=== PATIENT | female | born 1995 | race African-American/Black ===

== ENCOUNTER 2017-06-29 13:58 | Emergency (ER) | payer MEDICAID ==
[~2017-06-29] VITALS: Ht 154.9 cm; Wt 38.0 kg
[2017-06-29 14:06] VITALS: BP 111/76
== END 2017-06-29 17:30 | disposition left against medical advice (07) ==
LOC: ER 15:22
DX: R10.9 Unspecified abdominal pain (principal); Z53.21 Procedure and treatment not carried out due to patient leaving prior to being seen by health care provider

== ENCOUNTER 2017-10-24 09:14 | Emergency (ER) | payer MEDICAID ==
[~2017-10-24] VITALS: Ht 152.4 cm; Wt 46.0 kg
[2017-10-24 10:05] VITALS: BP 128/49
== END 2017-10-24 12:27 | disposition left against medical advice (07) ==
LOC: ER 09:29
DX: R11.10 Vomiting, unspecified (principal); Z53.21 Procedure and treatment not carried out due to patient leaving prior to being seen by health care provider

== ENCOUNTER 2017-10-27 05:09 | Emergency (ER) | payer MEDICAID ==
[~2017-10-27] VITALS: Ht 162.6 cm; Wt 45.0 kg
[2017-10-27] MEDS ORDERED: METHYLPREDNISOLONE SOD SUCC 125 MG/2 ML VIAL IM STA (08:17)
[2017-10-27] MEDS ORDERED: ALBUTEROL (0.083%) 2.5MG/3ML NEB HHN STA (08:17)
[2017-10-27] MEDS ORDERED: IPRATROPIUM BROMIDE (0.02%) 0.5MG/2.5ML NEB HHN STA (08:17)
[2017-10-27] MEDS ORDERED: SODIUM CHLORIDE 0.9% 1,000 ML IV ONE (08:44)
[2017-10-27] MEDS ORDERED: KETOROLAC 30MG/ML VIAL IV STA (08:44)
[2017-10-27] MEDS ORDERED: ONDANSETRON HCL 4MG/2ML VIAL IV STA (08:44)
[2017-10-27 09:25] LABS: CLARITY URINE CLEAR (CLEAR); COLOR URINE YELLOW (YELLOW); KETONES URINE 3+ (NEGATIVE); LEUKOCYTE ESTERASE URINE 1+ (NEGATIVE); NITRITE URINE NEGATIVE (NEGATIVE); OCCULT BLOOD URINE NEGATIVE (NEGATIVE); PH URINE 6.5 (4.5-8.0); PROTEIN URINE NEGATIVE (NEGATIVE); SPECIFIC GRAVITY URINE 1.023 (1.005-1.030); UROBILINOGEN URINE 0.2 E.U./dL (0.2-1.0)
[2017-10-27 09:35] LABS: BASOPHILS % 0.9 % (0.0-2.0); EOSINOPHILS % 0.4 % (0.0-5.0); HEMATOCRIT. 37.9 % (36.0-48.0); LYMPHOCYTES % 20.3 % (20.0-50.0); MEAN CORPUSCULAR HEMOGLOBIN 32.2 pg (28.0-32.0); MEAN CORPUSCULAR VOLUME 93.7 fL (81.0-99.0); MEAN PLATELET VOLUME 6.8 fl (7.4-10.4); MONOCYTES % 8.4 % (2.0-8.0); PLATELET 288 x1000/uL (130-400); RED BLOOD CELL COUNT 4.04 mill/uL (4.2-5.4); RED CELL DISTRIBUTION WIDTH 12.9 % (11.6-14.6)
[2017-10-27 09:51] LABS: CARBON DIOXIDE 26 mEq/L (21-32); CHLORIDE 103 mEq/L (98-107); ETHANOL BLOOD < 10 mg/dL
[2017-10-27 09:59] LABS: HCG SCREEN NEGATIVE
[2017-10-27] MEDS ORDERED: AZITHROMYCIN 500 MG TABLET PO NR (10:55)
[2017-10-27] MEDS ORDERED: FAMOTIDINE 20MG/2ML VIAL IV NR (10:55)
[2017-10-27] MEDS ORDERED: CEFTRIAXONE 1 G PREMIX 50 ML IV NR (10:55)
[2017-10-27] MEDS ORDERED: ONDANSETRON HCL 4MG/2ML VIAL IV NR (10:56)
[2017-10-27 13:06] VITALS: BP 123/87
== END 2017-10-27 13:18 | disposition home or self-care (01) ==
LOC: ER 05:09
DX: K29.70 Gastritis, unspecified, without bleeding (principal); A59.9 Trichomoniasis, unspecified; N39.0 Urinary tract infection, site not specified; I10 Essential (primary) hypertension
CPT/HCPCS: 36415; 80053; 81001; 83690; 84703; 85025; 93005; 96361; 96365; 96375; 96376; 99285; G0482; J0696; J1885; J2405; J3490; J7030; Z7610; J7611